=== PATIENT | female | born 1945 | race Caucasian/White ===

== ENCOUNTER 2024-08-24 18:27 | Inpatient (IN) | payer MEDICARE, BC ==
[~2024-08-24] VITALS: Ht 172.7 cm; Wt 94.8 kg
[2024-08-24] MEDS ORDERED: QUET200T PO (19:14)
[2024-08-24] MEDS ORDERED: ONDA4TAB5 (19:14)
[2024-08-24] MEDS ORDERED: BUSP10TA3 PO (19:14)
[2024-08-24] MEDS ORDERED: SERT-440 PO (19:14)
[2024-08-24] MEDS ORDERED: FLUT50DI (19:14)
[2024-08-24] MEDS ORDERED: SENN8.6C5 (19:14)
[2024-08-24] MEDS ORDERED: CARB15DR (19:14)
[2024-08-24] MEDS ORDERED: BISA10SU95 (19:14)
[2024-08-24] MEDS ORDERED: RISP0.5T5 PO (19:14)
[2024-08-24] MEDS ORDERED: OSMOLITE (19:14)
[2024-08-24] MEDS ORDERED: TRAZ150T75 PO (19:14)
[2024-08-24] MEDS ORDERED: TRAM50TA2 (19:14)
[2024-08-24] MEDS ORDERED: LEVO100C4 PO (19:14)
[2024-08-24] MEDS ORDERED: CELE-85 (19:14)
[2024-08-24] MEDS ORDERED: METO-356 PO (19:14)
[2024-08-24] MEDS ORDERED: ACET325C7 (19:14)
[2024-08-24] MEDS ORDERED: EZET10TA32 PO (19:14)
[2024-08-24] MEDS ORDERED: [UNRECOGNIZED DRUG - CODE] (19:14)
[2024-08-24] MEDS ORDERED: APIX2.5T PO (19:14)
[2024-08-24] MEDS ORDERED: PANT40TA2 (19:14)
[2024-08-24] MEDS ORDERED: DIPH25CA83 (19:14)
[2024-08-24] MEDS ORDERED: GABA-534 PO (19:14)
[2024-08-24] MEDS: ALBUTEROL SULFATE 2.5 MG/3 ML NEBU NEB ONE (19:15)
[2024-08-24] MEDS: IPRATROPIUM BROMIDE 0.5 MG/2.5 ML NEBU NEB ONE (19:15)
[2024-08-24] MEDS ORDERED: ALBUTEROL SULFATE 2.5 MG/3 ML NEBU ONE (19:18)
[2024-08-24] MEDS ORDERED: IPRATROPIUM BROMIDE 0.5 MG/2.5 ML NEBU ONE (19:18)
[2024-08-24] MEDS ORDERED: methylPREDNISolone SOD SUCC 125 MG/2 ML VIAL ONE (19:19)
[2024-08-24 19:20] VITALS: O2SAT 96
[2024-08-24] MEDS: methylPREDNISolone SOD SUCC 125 MG/2 ML VIAL IV ONE (19:21)
[2024-08-24] MEDS: IV NORMAL SALINE 1000 ML BAG IV ONE (19:21)
[2024-08-24] MEDS ORDERED: CEFTRIAXONE /D5W 50ML IVPB **ER PYXIS IV ONE (19:25)
[2024-08-24] MEDS: CEFTRIAXONE 1 G in IV DEXTROSE 5% 50 ML IV ONE (19:40)
[2024-08-24 19:50] VITALS: O2SAT 98
[2024-08-24 20:05] LABS: BASOPHILS % (AUTO) 0.4 % (0.0-2.0); EOSINOPHILS # (AUTO) 0.1 K/uL (0.0-0.7); HEMATOCRIT 40.5 % (31.2-41.9); HEMOGLOBIN 13.2 g/dL (10.9-14.3); LYMPHOCYTES % (AUTO) 13.2 % (20.5-51.5); MEAN CORPUSCULAR HGB CONC 33 g/dL (32.3-35.6); MEAN CORPUSCULAR VOLUME 86.1 fL (75.5-95.3); MONOCYTES # (AUTO) 0.8 K/uL (0.1-1.30); NEUTROPHILS # (AUTO) 5.4 K/uL (1.8-8.9); NEUTROPHILS % (AUTO) 74.4 % (38.5-71.5); PLATELET COUNT (AUTO) 226 K/uL (179-408); RED CELL DISTRIBUTION WIDTH 14.6 % (12.3-17.7); WHITE BLOOD COUNT (AUTO) 7.2 K/uL (3.8-11.8)
[2024-08-24 20:08] LABS: DIFFERENTIAL COMMENT 1
[2024-08-24 20:20] VITALS: O2SAT 98
[2024-08-24 20:28] LABS: ALANINE AMINOTRANSFERASE 23 U/L (14-59); ALKALINE PHOSPHATASE 105 U/L (50-136); ASPARTATE AMINOTRANSFERASE 19 U/L (15-37); BILIRUBIN,DIRECT 0.1 mg/dL (0.0-0.2); BILIRUBIN,TOTAL 0.4 mg/dL (0.2-1.0); CALCIUM 8.4 mg/dL (8.5-10.1); CARBON DIOXIDE 31 mmol/L (21-32); CHLORIDE 103 mmol/L (98-107); CREATININE 0.6 mg/dL (0.6-1.3); GLUCOSE 131 mg/dL (74-106); NT-PRO BNP 171 pg/mL (0-125); POTASSIUM 3.9 mmol/L (3.5-5.1); SODIUM SERUM 142 mmol/L (136-145); TOTAL PROTEIN, SERUM 6.8 g/dL (6.4-8.2); UREA NITROGEN, BLOOD 10 mg/dL (7-18)
[2024-08-24 21:43] LABS: ABG BASE EXCESS 0.9 mmol/L (-2.0-3.0); ABG HCO3 27.4 mmol/L (21.0-28.0); ABG PCO2 51.1 mmHg (32.0-45.0); ABG PH 7.347 (7.350-7.450); ABG PO2 63.9 mmHg (83.0-108.0); ABG SITE RIGHT RADIAL; ABG TOTAL HEMOGLOBIN 13.6 G/dL (12.0-16.0); AaDO2 91.1 mmHg; COHb 0.8 % (0.5-1.5); MetHb 0.3 % (0.0-1.5); O2Hb 91.7 % (94.0-98.0)
[2024-08-25] VITALS (8 sets, daily range): BP systolic 149–161; BP diastolic 69–85; TEMP 98.1–98.8; O2SAT 93–100
[2024-08-25] MEDS ORDERED: ACETAMINOPHEN 325 MG TABLET PO PRN (01:15)
[2024-08-25] MEDS: levoFLOXacin 500 MG/D5W 500 MG in PREMIXED 1 EACH IV ONE (01:30)
[2024-08-25] MEDS: ENOXAPARIN SODIUM 40 MG/0.4 ML DISP.SYRIN SQ ONE (01:58)
[2024-08-25] MEDS ORDERED: levoFLOXacin 500 MG TABLET PO SCH (03:36)
[2024-08-25] MEDS: levoFLOXacin 500 MG TABLET GT SCH (06:00)
[2024-08-25] MEDS: PANTOPRAZOLE ORAL SUSPENSION 40 MG SUSPDR.PKT GT SCH (06:16)
[2024-08-25] MEDS: ACETAMINOPHEN 325 MG TABLET GT PRN (06:21)
[2024-08-25 07:19] LABS: BASOPHILS % (AUTO) 0.2 % (0.0-2.0); HEMATOCRIT 37.1 % (31.2-41.9); HEMOGLOBIN 12.2 g/dL (10.9-14.3); LYMPHOCYTES # (AUTO) 0.7 K/uL (0.8-4.8); LYMPHOCYTES % (AUTO) 11.7 % (20.5-51.5); MEAN CORPUSCULAR HEMOGLOBIN 28.3 uug (24.7-32.8); MEAN CORPUSCULAR HGB CONC 33 g/dL (32.3-35.6); MEAN CORPUSCULAR VOLUME 85.9 fL (75.5-95.3); MONOCYTES # (AUTO) 0.5 K/uL (0.1-1.30); MONOCYTES % (AUTO) 9.2 % (0.0-11.0); NEUTROPHILS # (AUTO) 4.5 K/uL (1.8-8.9); NEUTROPHILS % (AUTO) 78.9 % (38.5-71.5); PLATELET COUNT (AUTO) 218 K/uL (179-408); RED BLOOD CELL COUNT(AUTO) 4.32 MIL/uL (3.63-4.92); RED CELL DISTRIBUTION WIDTH 14.4 % (12.3-17.7); WHITE BLOOD COUNT (AUTO) 5.7 K/uL (3.8-11.8)
[2024-08-25 07:37] LABS: DIFFERENTIAL COMMENT 1
[2024-08-25 07:38] LABS: ALANINE AMINOTRANSFERASE 19 U/L (14-59); ALBUMIN 2.7 g/dL (3.4-5.0); ALKALINE PHOSPHATASE 97 U/L (50-136); ASPARTATE AMINOTRANSFERASE 12 U/L (15-37); BILIRUBIN,TOTAL 0.4 mg/dL (0.2-1.0); CARBON DIOXIDE 29 mmol/L (21-32); CHLORIDE 104 mmol/L (98-107); CHOLESTEROL 142 mg/dL (<200); CREATININE 0.5 mg/dL (0.6-1.3); GLUCOSE 134 mg/dL (74-106); HDL CHOLESTEROL 48 mg/dL (40-60); MAGNESIUM 1.9 mg/dL (1.8-2.4); POTASSIUM 4.3 mmol/L (3.5-5.1); SODIUM SERUM 139 mmol/L (136-145); TOTAL PROTEIN, SERUM 6.7 g/dL (6.4-8.2); TRIGLYCERIDES 146 MG/DL (30-150); UREA NITROGEN, BLOOD 10 mg/dL (7-18)
[2024-08-25] MEDS: ONDANSETRON 4 MG/2 ML VIAL IV PRN (07:55)
[2024-08-25] MEDS ORDERED: GABAPENTIN 300 MG CAPSULE PO SCH (08:30)
[2024-08-25 08:58] LABS: THYROID STIMULATING HORMONE 1.277 mIU/mL (0.358-3.740)
[2024-08-25] MEDS ORDERED: SERTRALINE HCL 100 MG TABLET PO SCH (09:00)
[2024-08-25] MEDS: METOPROLOL SUCCINATE XL 25 MG TAB.SR.24H PO SCH (09:25)
[2024-08-25 11:17] LABS: BAND % (MANUAL) 9 % (0-10); LYMPHOCYTES % (MANUAL) 14 % (20-40); METAMYELOCYTES % 1 % (0-1); MONOCYTES % (MANUAL) 8 % (2-10); NEUTROPHILS % (MANUAL) 68 % (42-75); PLATELET ESTIMATE ADEQUATE
[2024-08-25] MEDS ORDERED: REMEDY ESSENTIAL ZINC PASTE 113 GM TOP PRN (12:30)
[2024-08-25] MEDS: AZITHROMYCIN IV 500 MG in IV DEXTROSE 5% 250 ML IV SCH (12:41)
[2024-08-25] MEDS: MORPHINE SULFATE 2 MG/1 ML DISP.SYRIN IV PRN (13:00)
[2024-08-25] MEDS: ALBUTEROL SULFATE 2.5 MG/3 ML NEBU NEB SCH (13:19)
[2024-08-25] MEDS: IPRATROPIUM BROMIDE 0.5 MG/2.5 ML NEBU NEB SCH (13:19)
[2024-08-25] MEDS: GABAPENTIN 300 MG CAPSULE PO SCH (14:32)
[2024-08-25] MEDS: SERTRALINE HCL 100 MG TABLET PO SCH (14:40)
[2024-08-25] MEDS: CEFTRIAXONE 1 G in IV DEXTROSE 5% 50 ML IV SCH (18:51)
[2024-08-25] MEDS ORDERED: ENOXAPARIN SODIUM 40 MG/0.4 ML DISP.SYRIN SQ SCH (21:00)
[2024-08-25] MEDS ORDERED: levoFLOXacin 500 MG/D5W 500 MG in PREMIXED 1 EACH IV SCH (21:00)
[2024-08-25] MEDS: APIXABAN 2.5 MG TABLET PO SCH (21:04)
[2024-08-25] MEDS: TRAZODONE 100 MG TABLET PO SCH (21:04)
[2024-08-25] MEDS: REMEDY ESSENTIAL ZINC PASTE 113 GM TOP SCH (21:09)
[2024-08-25] MEDS: CLOTRIMAZOLE/BETAMET DIPROP CREAM 15 GM TUBE TOP SCH (21:11)
[2024-08-26] VITALS (14 sets, daily range): BP systolic 117–156; BP diastolic 58–64; TEMP 97.9–98.8; O2SAT 94–99
[2024-08-26] MEDS: LEVOTHYROXINE SODIUM 100 MCG TABLET PO SCH (06:11)
[2024-08-26 07:39] LABS: BASOPHILS % (AUTO) 0.3 % (0.0-2.0); EOSINOPHILS # (AUTO) 0.1 K/uL (0.0-0.7); HEMATOCRIT 38.8 % (31.2-41.9); HEMOGLOBIN 12.5 g/dL (10.9-14.3); LYMPHOCYTES # (AUTO) 1.2 K/uL (0.8-4.8); LYMPHOCYTES % (AUTO) 17.4 % (20.5-51.5); MEAN CORPUSCULAR HEMOGLOBIN 28.4 uug (24.7-32.8); MEAN CORPUSCULAR HGB CONC 32 g/dL (32.3-35.6); MEAN CORPUSCULAR VOLUME 88.4 fL (75.5-95.3); MONOCYTES # (AUTO) 0.8 K/uL (0.1-1.30); MONOCYTES % (AUTO) 11.5 % (0.0-11.0); NEUTROPHILS % (AUTO) 69.8 % (38.5-71.5); PLATELET COUNT (AUTO) 223 K/uL (179-408); RED BLOOD CELL COUNT(AUTO) 4.39 MIL/uL (3.63-4.92); RED CELL DISTRIBUTION WIDTH 14.7 % (12.3-17.7); WHITE BLOOD COUNT (AUTO) 7.1 K/uL (3.8-11.8)
[2024-08-26] MEDS ORDERED: IPRATROPIUM BROMIDE 0.5 MG/2.5 ML NEBU ONE (07:45)
[2024-08-26] MEDS ORDERED: ALBUTEROL SULFATE 2.5 MG/3 ML NEBU ONE (07:45)
[2024-08-26 08:01] LABS: CALCIUM 8.4 mg/dL (8.5-10.1); CARBON DIOXIDE 25 mmol/L (21-32); CHLORIDE 102 mmol/L (98-107); CREATININE 0.5 mg/dL (0.6-1.3); GLUCOSE 91 mg/dL (74-106); MAGNESIUM 2.1 mg/dL (1.8-2.4); NT-PRO BNP 336 pg/mL (0-125); PHOSPHOROUS 3.7 mg/dL (2.5-4.9); SODIUM SERUM 136 mmol/L (136-145); UREA NITROGEN, BLOOD 10 mg/dL (7-18)
[2024-08-26 08:11] LABS: DIFFERENTIAL COMMENT 1
[2024-08-26] MEDS: CEFTRIAXONE 2 G in IV DEXTROSE 5% 100 ML IV SCH (08:18)
[2024-08-26] MEDS: ACETYLCYSTEINE 10% 4ML VIAL NEB SCH (13:40)
[2024-08-26 14:11] LABS: *BILIRUBIN,URIN NEGATIVE (NEGATIVE); *CLARITY,URINE SLIGHTLY CLOUDY (CLEAR); *KETONES,URINE NEGATIVE (NEGATIVE); *PROTEIN,URINE NEGATIVE (NEGATIVE); *UROBILINOGEN,URINE 0.2 E.U./dl (NORMAL); LEUKOCYTE ESTERASE ,URINE 2+ (NEGATIVE); NITRITE, URINE POSITIVE (NEGATIVE); UGLUCOSE NEGATIVE (NEGATIVE)
[2024-08-26 14:14] LABS: *BLOOD, URINE TRACE (NEGATIVE); *COLOR,URINE LIGHT YELLOW (YELLOW)
[2024-08-26 14:22] LABS: RBC,URINE 0-3 /HPF (0-3)
[2024-08-26 14:23] LABS: BACTERIA,URINE MODERATE /HPF (NONE SEEN); SQUAMOUS EPITHELIAL CELL,UR MODERATE /HPF (NONE SEEN)
[2024-08-26 14:28] LABS: YEAST,URINE MODERATE /HPF (NONE SEEN)
[2024-08-26 14:31] LABS: URINE AMORPHOUS URATE MODERATE /HPF
[2024-08-26 14:35] LABS: URIC ACID CRYSTALS,URINE FEW /HPF (NONE SEEN)
[2024-08-26 15:49] LABS: ANISOCYTOSIS 1+; LYMPHOCYTES % (MANUAL) 15 % (20-40); MONOCYTES % (MANUAL) 11 % (2-10); NEUTROPHILS % (MANUAL) 74 % (42-75); PLATELET ESTIMATE ADEQUATE
[2024-08-27] VITALS (17 sets, daily range): BP systolic 137–177; BP diastolic 65–88; TEMP 98–99.3; O2SAT 90–99
[2024-08-27] MEDS: OSMOLITE 1.2 CAL 1,000 ML LIQUID GT PRN (05:35)
[2024-08-27 06:56] LABS: BASOPHILS % (AUTO) 0.3 % (0.0-2.0); EOSINOPHILS # (AUTO) 0.1 K/uL (0.0-0.7); EOSINOPHILS % (AUTO) 1.3 % (0.0-7.0); HEMATOCRIT 38.9 % (31.2-41.9); LYMPHOCYTES # (AUTO) 1.1 K/uL (0.8-4.8); LYMPHOCYTES % (AUTO) 16.3 % (20.5-51.5); MEAN CORPUSCULAR HEMOGLOBIN 28.3 uug (24.7-32.8); MEAN CORPUSCULAR HGB CONC 33 g/dL (32.3-35.6); MEAN CORPUSCULAR VOLUME 84.7 fL (75.5-95.3); MONOCYTES # (AUTO) 0.7 K/uL (0.1-1.30); MONOCYTES % (AUTO) 10.9 % (0.0-11.0); NEUTROPHILS # (AUTO) 4.9 K/uL (1.8-8.9); NEUTROPHILS % (AUTO) 71.2 % (38.5-71.5); PLATELET COUNT (AUTO) 251 K/uL (179-408); RED BLOOD CELL COUNT(AUTO) 4.59 MIL/uL (3.63-4.92); RED CELL DISTRIBUTION WIDTH 14.2 % (12.3-17.7); WHITE BLOOD COUNT (AUTO) 6.9 K/uL (3.8-11.8)
[2024-08-27 07:05] LABS: CALCIUM 8.6 mg/dL (8.5-10.1); CARBON DIOXIDE 31 mmol/L (21-32); CHLORIDE 101 mmol/L (98-107); CREATININE 0.5 mg/dL (0.6-1.3); GLUCOSE 139 mg/dL (74-106); PHOSPHOROUS 3.9 mg/dL (2.5-4.9); POTASSIUM 3.2 mmol/L (3.5-5.1); SODIUM SERUM 142 mmol/L (136-145); UREA NITROGEN, BLOOD 8 mg/dL (7-18)
[2024-08-27 07:10] LABS: DIFFERENTIAL COMMENT 1
[2024-08-27] MEDS: ARGININE/GLUTAMINE/CALCIUM BMB 1 EACH POWD.PACK GT SCH (08:44)
[2024-08-27] MEDS: POTASSIUM CHLORIDE 20 MEQ POWDER PACKET GT ONE (10:06)
[2024-08-27 10:51] LABS: LYMPHOCYTES % (MANUAL) 16 % (20-40); NEUTROPHILS % (MANUAL) 71 % (42-75)
[2024-08-27 10:52] LABS: EOSINOPHILS % (MANUAL) 1 % (0-8); MONOCYTES % (MANUAL) 11 % (2-10); PLATELET ESTIMATE ADEQUATE
[2024-08-27] MEDS ORDERED: FLUCONAZOLE 400MG /NS 200ML IV 400 MG in PREMIXED 1 EACH IV SCH (11:00)
[2024-08-27] MEDS: risperiDONE 0.5 MG TABLET PO SCH (11:27)
[2024-08-27] MEDS: HYDROCODONE/APAP 5-325MG TABLET PO PRN (14:13)
[2024-08-27] MEDS: IPRATROPIUM BROMIDE 0.5 MG/2.5 ML NEBU NEB PRN (15:34)
[2024-08-27] MEDS: busPIRone 10 MG TABLET PO SCH (17:43)
[2024-08-27] MEDS: QUETIAPINE FUMARATE 200 MG TABLET PO SCH (20:30)
[2024-08-27] MEDS: EZETIMIBE 10 MG TABLET PO SCH (20:32)
[2024-08-27] MEDS: CALCIUM CARBONATE 500 MG TAB.CHEW PO ONE (21:00)
[2024-08-27] MEDS ORDERED: CALCIUM CARBONATE 500 MG TAB.CHEW PO PRN (22:15)
[2024-08-28] VITALS (13 sets, daily range): BP systolic 126–152; BP diastolic 60–76; TEMP 97.6–99.6; O2SAT 90–99
[2024-08-28] MEDS: ALBUTEROL SULFATE 2.5 MG/3 ML NEBU NEB PRN (00:45)
[2024-08-28 06:44] LABS: BASOPHILS % (AUTO) 0.5 % (0.0-2.0); EOSINOPHILS # (AUTO) 0.3 K/uL (0.0-0.7); EOSINOPHILS % (AUTO) 3.3 % (0.0-7.0); HEMOGLOBIN 12.9 g/dL (10.9-14.3); LYMPHOCYTES % (AUTO) 23.4 % (20.5-51.5); MEAN CORPUSCULAR HGB CONC 33 g/dL (32.3-35.6); MEAN CORPUSCULAR VOLUME 84.9 fL (75.5-95.3); MONOCYTES # (AUTO) 1.1 K/uL (0.1-1.30); MONOCYTES % (AUTO) 12.2 % (0.0-11.0); NEUTROPHILS # (AUTO) 5.3 K/uL (1.8-8.9); NEUTROPHILS % (AUTO) 60.6 % (38.5-71.5); PLATELET COUNT (AUTO) 262 K/uL (179-408); RED CELL DISTRIBUTION WIDTH 14.6 % (12.3-17.7); WHITE BLOOD COUNT (AUTO) 8.8 K/uL (3.8-11.8)
[2024-08-28 07:08] LABS: CALCIUM 8.6 mg/dL (8.5-10.1); CARBON DIOXIDE 32 mmol/L (21-32); CHLORIDE 102 mmol/L (98-107); CREATININE 0.6 mg/dL (0.6-1.3); DIFFERENTIAL COMMENT 1; GLUCOSE 112 mg/dL (74-106); PHOSPHOROUS 4.3 mg/dL (2.5-4.9); POTASSIUM 4.3 mmol/L (3.5-5.1); SODIUM SERUM 141 mmol/L (136-145); UREA NITROGEN, BLOOD 10 mg/dL (7-18)
[2024-08-28] MEDS: GABAPENTIN 300 MG CAPSULE GT SCH (13:58)
[2024-08-28] MEDS: risperiDONE 0.5 MG TABLET GT SCH (15:35)
[2024-08-28] MEDS: FLUCONAZOLE 400MG /NS 200ML IV 400 MG in PREMIXED 1 EACH IV SCH (17:34)
[2024-08-28] MEDS: busPIRone 10 MG TABLET GT SCH (17:35)
[2024-08-28] MEDS: EZETIMIBE 10 MG TABLET GT SCH (21:03)
[2024-08-28] MEDS: QUETIAPINE FUMARATE 200 MG TABLET GT SCH (21:03)
[2024-08-28] MEDS: TRAZODONE 100 MG TABLET GT SCH (21:04)
[2024-08-28] MEDS: APIXABAN 2.5 MG TABLET GT SCH (21:05)
[2024-08-28] MEDS: CALCIUM CARBONATE 500 MG TAB.CHEW GT PRN (21:26)
[2024-08-29] VITALS (8 sets, daily range): BP systolic 140–159; BP diastolic 54–82; TEMP 97.2–99; O2SAT 92–98
[2024-08-29] MEDS: HYDROCODONE/APAP 5-325MG TABLET GT PRN (05:27)
[2024-08-29] MEDS: LEVOTHYROXINE SODIUM 100 MCG TABLET GT SCH (06:14)
[2024-08-29 07:19] LABS: BASOPHILS % (AUTO) 0.4 % (0.0-2.0); EOSINOPHILS # (AUTO) 0.3 K/uL (0.0-0.7); EOSINOPHILS % (AUTO) 3.2 % (0.0-7.0); HEMATOCRIT 39.4 % (31.2-41.9); HEMOGLOBIN 12.8 g/dL (10.9-14.3); LYMPHOCYTES # (AUTO) 1.9 K/uL (0.8-4.8); LYMPHOCYTES % (AUTO) 19.5 % (20.5-51.5); MEAN CORPUSCULAR HEMOGLOBIN 27.9 uug (24.7-32.8); MEAN CORPUSCULAR HGB CONC 33 g/dL (32.3-35.6); MEAN CORPUSCULAR VOLUME 85.7 fL (75.5-95.3); MONOCYTES # (AUTO) 0.9 K/uL (0.1-1.30); MONOCYTES % (AUTO) 9.5 % (0.0-11.0); NEUTROPHILS # (AUTO) 6.7 K/uL (1.8-8.9); NEUTROPHILS % (AUTO) 67.4 % (38.5-71.5); PLATELET COUNT (AUTO) 267 K/uL (179-408); RED CELL DISTRIBUTION WIDTH 14.8 % (12.3-17.7); WHITE BLOOD COUNT (AUTO) 9.9 K/uL (3.8-11.8)
[2024-08-29 07:46] LABS: DIFFERENTIAL COMMENT 1
[2024-08-29 07:51] LABS: CALCIUM 8.4 mg/dL (8.5-10.1); CARBON DIOXIDE 31 mmol/L (21-32); CHLORIDE 104 mmol/L (98-107); CREATININE 0.6 mg/dL (0.6-1.3); GLUCOSE 138 mg/dL (74-106); MAGNESIUM 2.1 mg/dL (1.8-2.4); PHOSPHOROUS 3.7 mg/dL (2.5-4.9); SODIUM SERUM 141 mmol/L (136-145); UREA NITROGEN, BLOOD 7 mg/dL (7-18)
[2024-08-29 09:00] LABS: ABG BASE EXCESS 3.9 mmol/L (-2.0-3.0); ABG HCO3 29.1 mmol/L (21.0-28.0); ABG PCO2 45.5 mmHg (32.0-45.0); ABG PH 7.423 (7.350-7.450); ABG PO2 69.9 mmHg (83.0-108.0); ABG SITE LEFT RADIAL; ABG TOTAL HEMOGLOBIN 13.6 G/dL (12.0-16.0); AaDO2 94.3 mmHg; COHb 0.6 % (0.5-1.5); MetHb 0.1 % (0.0-1.5); O2Hb 93.5 % (94.0-98.0)
[2024-08-29] MEDS: SERTRALINE HCL 100 MG TABLET GT SCH (09:47)
[2024-08-29 21:05] LABS: ADENOVIRUS Not Detected (Not Detected); CORONAVIRUS 229E Not Detected (Not Detected); CORONAVIRUS HKU1 Not Detected (Not Detected); CORONAVIRUS NL63 Not Detected (Not Detected); CORONAVIRUS OC43 Not Detected (Not Detected); NP BORDETELLA PERTUSIS Not Detected (Not Detected); NP CHLAMYDOPHILA PNEUMONIAE Not Detected (Not Detected); NP HUMAN METAPNEUMOVIRUS Not Detected (Not Detected); NP HUMAN RHINO/ENTERO VIRUS Not Detected (Not Detected); NP INFLUENZA A Not Detected (Not Detected); NP INFLUENZA A/H1 Not Detected (Not Detected); NP INFLUENZA A/H1-2009 Not Detected (Not Detected); NP INFLUENZA A/H3 Not Detected (Not Detected); NP INFLUENZA B Not Detected (Not Detected); NP MYCOPLASMA PNEUMONIAE Not Detected (Not Detected); NP PARAINFLUENZA 1 Not Detected (Not Detected); NP PARAINFLUENZA 2 Not Detected (Not Detected); NP PARAINFLUENZA 3 Not Detected (Not Detected); NP PARAINFLUENZA 4 Not Detected (Not Detected); NP RESPIRATORY SYNCYTIAL VIRUS Detected (Not Detected)
[2024-08-30] VITALS (18 sets, daily range): BP systolic 139–162; BP diastolic 61–85; TEMP 98.1–98.6; O2SAT 92–98
[2024-08-30] MEDS: MICAFUNGIN SODIUM 100 MG in IV NORMAL SALINE 100 ML IV SCH (16:25)
[2024-08-31] VITALS (13 sets, daily range): BP systolic 118–162; BP diastolic 60–81; TEMP 97.8–98.6; O2SAT 90–98
[2024-09-01] VITALS (9 sets, daily range): BP systolic 141–148; BP diastolic 67–74; TEMP 97.7–98.4; O2SAT 92–99
[2024-09-01 07:10] LABS: BASOPHILS # (AUTO) 0.1 K/UL (0.0-0.2); BASOPHILS % (AUTO) 0.6 % (0.0-2.0); EOSINOPHILS # (AUTO) 0.3 K/uL (0.0-0.7); EOSINOPHILS % (AUTO) 1.7 % (0.0-7.0); HEMATOCRIT 36.6 % (31.2-41.9); HEMOGLOBIN 11.9 g/dL (10.9-14.3); LYMPHOCYTES # (AUTO) 1.9 K/uL (0.8-4.8); LYMPHOCYTES % (AUTO) 12.3 % (20.5-51.5); MEAN CORPUSCULAR HEMOGLOBIN 27.9 uug (24.7-32.8); MEAN CORPUSCULAR HGB CONC 32 g/dL (32.3-35.6); MEAN CORPUSCULAR VOLUME 86.1 fL (75.5-95.3); MONOCYTES # (AUTO) 1.3 K/uL (0.1-1.30); MONOCYTES % (AUTO) 8.6 % (0.0-11.0); NEUTROPHILS # (AUTO) 11.8 K/uL (1.8-8.9); NEUTROPHILS % (AUTO) 76.8 % (38.5-71.5); PLATELET COUNT (AUTO) 320 K/uL (179-408); RED BLOOD CELL COUNT(AUTO) 4.25 MIL/uL (3.63-4.92); RED CELL DISTRIBUTION WIDTH 14.8 % (12.3-17.7); WHITE BLOOD COUNT (AUTO) 15.3 K/uL (3.8-11.8)
[2024-09-01 07:32] LABS: CARBON DIOXIDE 26 mmol/L (21-32); CHLORIDE 102 mmol/L (98-107); GLUCOSE 123 mg/dL (74-106); MAGNESIUM 2.2 mg/dL (1.8-2.4); PHOSPHOROUS 3.9 mg/dL (2.5-4.9); POTASSIUM 4.2 mmol/L (3.5-5.1); SODIUM SERUM 139 mmol/L (136-145); UREA NITROGEN, BLOOD 10 mg/dL (7-18)
[2024-09-01 07:49] LABS: DIFFERENTIAL COMMENT 1
[2024-09-01 08:09] LABS: CALCIUM 8.6 mg/dL (8.5-10.1); CREATININE 0.5 mg/dL (0.6-1.3)
[2024-09-01] MEDS ORDERED: FLUC100T8 PO (12:54)
[2024-09-01] MEDS ORDERED: DOXY100T2 PO (12:54)
[2024-09-01] MEDS ORDERED: NEBU-171 MC (12:54)
[2024-09-01] MEDS ORDERED: IPRA0.2S6 NEB (12:54)
[2024-09-01] MEDS ORDERED: ALBU2.5V7 NEB (12:54)
== END 2024-09-01 18:10 | disposition home health service (06) | DRG 202 ==
LOC: ER 18:27 → TELE3 22:00 → MEDSURG3 08-30 11:00
PROVIDERS: ADMIT Internal Medicine; ATTEND Nurse Practitioner Acute Care
PROC: 05HC33Z Insertion of Infusion Device into Left Basilic Vein, Percutaneous Approach (ICD-10-PCS; principal; 2024-08-29)
DX: J45.909 Unspecified asthma, uncomplicated (principal); J96.01 Acute respiratory failure with hypoxia; R53.2 Functional quadriplegia; J96.02 Acute respiratory failure with hypercapnia; D68.59 Other primary thrombophilia; B37.49 Other urogenital candidiasis; B97.4 Respiratory syncytial virus as the cause of diseases classified elsewhere; E66.01 Morbid (severe) obesity due to excess calories; Z68.39 Body mass index [BMI] 39.0-39.9, adult; E03.9 Hypothyroidism, unspecified; Z85.3 Personal history of malignant neoplasm of breast; Z74.01 Bed confinement status; Z87.01 Personal history of pneumonia (recurrent); G89.29 Other chronic pain; F41.9 Anxiety disorder, unspecified; I10 Essential (primary) hypertension; E87.6 Hypokalemia; Z93.1 Gastrostomy status
CPT/HCPCS: 36415; 36600; 70030-TC; 71045; 82803; 83605; 83735; 84100; 84443; 84484; 85025; 85730; 87040; 93307; 94640; 94760; A4606; A4663; A6209; A6213; G0378; J0456; J0696; J1450; J1650; J1956; J2248; J2270; J2405; J2919; J3590; J7040; J7050